=== PATIENT | female | born 1960 | race Caucasian/White ===

== ENCOUNTER → 2019-09-22 | Emergency (ER) | payer MEDICARE, MEDICAID ==
[~2019-09-22] VITALS: Ht 167.6 cm; Wt 63.5 kg
[~2019-09-22] MED LIST: HYDROcodone-ACET 5/325MG TAB PO ONE
[2019-09-22 22:14] LABS: Albumin 2.9 g/dL (3.4-5.0); BUN/Creatinine Ratio 16.4; Basophils # (auto) 0.1 10 ^3/uL (0-0.2); Basophils % (auto) 0.6 % (0.0-2.0); Calcium 8.6 mg/dL (8.5-10.1); Eosinophils # (auto) 0 10 ^3/uL (0-0.8); Potassium 3.7 mmol/L (3.5-5.1)
[2019-09-22 22:16] LABS: Bilirubin, Total 0.5 mg/dL (0.2-1.0); Hematocrit 36.1 % (36.0-46.0); Hemoglobin 11.6 g/dL (12.2-16.2); Lymphocytes # (auto) 0.7 10 ^3/uL (0.4-5.4); Mean Corpuscular Hemoglobin 26.5 pg (28.0-32.0); Mean Corpuscular Volume 82.8 fL (80.0-100.0); Monocytes # (auto) 0.6 10 ^3/uL (0-1.3); Monocytes % (auto) 3.4 % (0.0-12.0); Neutrophils # (auto) 15.2 10 ^3/uL (1.6-8.6); Platelet Count (auto) 260 10^3/uL (140-450); Red Blood Cells 4.36 10^6/uL (4.0-5.20); Total Protein 6.3 g/dL (6.4-8.2); White Blood Cell 16.5 10^3/uL (4.4-10.8)
[2019-09-22 22:21] LABS: Partial Thromboplastin Time 30.8 sec (23.64-32.05)
[2019-09-22 22:30] LABS: Red Cell Distribution Width 21.7 % (11.8-14.3)
[2019-09-23 01:00] VITALS: BP 119/70
== END | disposition home or self-care (01) ==
LOC: ER 18:24
DX: D49.6 Neoplasm of unspecified behavior of brain (principal); C79.51 Secondary malignant neoplasm of bone; C78.00 Secondary malignant neoplasm of unspecified lung; I10 Essential (primary) hypertension
CPT/HCPCS: 36415; 70450; 71045; 71250; 80053; 85025; 85610; 85730